=== PATIENT | female | born 1995 ===

== ENCOUNTER 2023-07-16 20:29 | Emergency (ER) | payer OTHER ==
[2023-07-16 21:44] LABS: Absolute Basophils 0.1 K/uL (0-0.5); Absolute Eosinophils 0.6 K/uL (0-0.5); Absolute Lymphocytes (CBC) 2.2 K/uL (0.7-4.9); Absolute Monocytes 0.8 K/uL (0.1-1.3); Absolute Neutrophil 7.8 K/uL (1.8-8.0); Basophils % 0.7 % (0-1.3); Eosinophils % 5.3 % (0-4.4); Hematocrit 42.2 % (36.0-45.0); Hemoglobin 14.3 g/dL (12.0-15.0); Lymphocytes % 18.9 % (15.3-44.8); MCH 28.9 pg (27.0-35.0); MCHC 33.8 g/dL (32.0-36.0); MCV 85.5 fL (80-100); MPV 9.3 fL (7.6-11.3); Neutrophils % 68.1 % (41.7-73.7); Nucleated Red Blood Cells % 0.1 % (0-0); Platelets 171 thou/uL (152-406); RBC Red Blood Cell Count 4.93 M/uL (3.86-4.86); Red Cell Distribution Width 12.6 % (12.1-15.2)
[2023-07-16 21:55] LABS: Specific Gravity < 1.005 (1.005-1.030)
[2023-07-16 21:58] LABS: Specific Gravity < 1.005 (1.005-1.030); Sqamous Epithelial None Seen /HPF (None Seen); Urine Bacteria <20 /HPF (<20); Urine Bilirubin NEGATIVE (Negative); Urine Blood 2+ (Negative); Urine Clarity Turbid (Clear); Urine Color Colorless (Yellow); Urine Culture Reflex Order NOT NEEDED; Urine Glucose NEGATIVE (Negative); Urine Ketones NEGATIVE (Negative); Urine Microscopic Reflex YN ORDER UMIC; Urine Nitrite NEGATIVE (Negative); Urine Protein NEGATIVE (Negative); Urine Urobilinogen Normal (Normal); Urine WBC <5 /HPF (<5)
--- NOTE | 2023-07-16 22:42 | RAD REPORT ---
EXAM DESCRIPTION: US - Transvaginal OB - 07/16/2023 9:47 pm CLINICAL HISTORY: VAGINAL BLEEDING COMPARISON: No comparisons TECHNIQUE: Sonographic grayscale and color flow images of a first-trimester were obtained through a transvaginal approach. FINDINGS: A single intrauterine is identified, within a flattened gestational sac. Hobart-rump length measures 4.1 millimeters, corresponding to gestational age of 6 weeks, 1 days. Normal yolk sac is visualized. No heart rate or cardiac pulsations are identified today. Crescentic fluid collection adjacent to the gestational sac posteriorly measuring 1.1 x 0.7 x 0.6 cm. Corpus luteum with peripheral vascularity seen within the right ovary. Maternal ovaries are unremarkable. No free fluid. IMPRESSION: 1. Single intrauterine , with no cardiac pulsations or heart rate identif ied. Flattened morphology of the gestational sac. Findings raise concern for demise. Please cor relate with serial beta HCG levels. 2. Crescentic fluid collection adjacent to the gestational sac posteriorly measuring up to 1.1 cm, fairchild ggestive of a small subarachnoid hemorrhage.
--- NOTE | 2023-07-16 22:57 | ER ---
Nurse's Notes [facility] Name: Bety Rojo Age: 28 yrs Sex: Female : 1995 Arrival Date: 07/16/2023 Time: 20:29 Bed DX1 Private MD: Diagnosis: Threatened Presentation: 07/15 21:21 Chief complaint: Patient states: vaginal bleeding that started today. denies pain. as6 Coronavirus screen: At this time, the client does not indicate any symptoms associated with coronavirus-19. Ebola Screen: No symptoms or risks identified at this time. Initial Sepsis Screen: Does the patient meet any 2 criteria? No. Patient's initial sepsis screen is negative. Does the patient have a suspected source of infection? No. Patient's initial sepsis screen is negative. Risk Assessment: Do you want to hurt yourself or someone else? Patient reports no desire to harm self or others. Onset of symptoms was July 16, 2023. 21:21 Acuity: AVILA 3 as6 21:21 Method Of Arrival: Ambulatory as6 Triage Assessment: 21:22 General: Appears in no apparent distress. Behavior is cooperative, anxious. Pain: as6 Denies pain. : Reports vaginal bleeding that is bright red, brown, spotty. 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 - Infectious Disease History:: Denies. - Social history:: Smoking status: Patient denies any tobacco usage or history of. Screenin/04 00:48 [facility] ED Fall Risk Assessment (Adult) History of falling in the last 3 months, ss including since admission No falls in past 3 months (0 pts). Abuse screen: Denies threats or abuse. Denies injuries from another. Nutritional screening: No deficits noted. Tuberculosis screening: Never had TB. Assessment: 00:38 General: Appears in no apparent distress. uncomfortable, Behavior is calm, cooperative. ss Neuro: Level of Consciousness is awake, alert, obeys commands, Oriented to person, place, time, situation. Respiratory: Airway is patent Respiratory effort is even, unlabored, Respiratory pattern is regular, symmetrical. : Reports vaginal bleeding that is. Derm: Skin is pink, warm \T\ dry. normal. Vital Signs: 07/15 21:20 BP 132 / 76; Pulse 72; Resp 16 S; Temp 97.5; Pulse Ox 100% on R/A; Weight 68.95 kg (R); as6 Height 5 ft. 7 in. ; Pain 0/10; 21:20 Body Mass Index 23.81 (68.95 kg, 170.18 cm) as6 21:20 Pain Scale: Adult as6 ED Course: 21:00 Patient arrived in ED. ra3 21:18 Rad Spraks PA is PHCP. cp 21:18 Keo Chase MD is Attending Physician. cp 21:21 Arm band placed on. as6 21:22 Triage completed. as6 21:33 Quantitative Hcg Sent. as6 21:33 CBC with Diff Sent. as6 21:33 Basic Metabolic Panel Sent. as6 21:33 Abo/rh Typing Sent. as6 21:33 Inserted saline lock: 20 gauge in right antecubital area, using aseptic technique. as6 Blood collected. 21:45 Urinalysis w/ reflexes Sent. vk 21:45 Urine collected: clean catch specimen, clear. vk 21:49 US Transvaginal Ob In Process Unspecified. EDMS / 00:38 Patient has correct armband on for positive identification. ss 00:48 Gaby Jimenez, RN is Primary Nurse. ss 00:48 No provider procedures requiring assistance completed. IV discontinued, intact, ss bleeding controlled, No redness/swelling at site. Pressure dressing applied. Administered Medications: No medications were administered Medication: 00:38 VIS not applicable for this client. ss Outcome: 07/15 22:57 Discharge ordered by . cp 06/ 00:22 Discharge ordered by . cp 00:48 Discharged to home ambulatory, with family, ss 00:48 Condition: good 00:48 Discharge instructions given to patient, family, Instructed on discharge instructions, follow up and referral plans. Demonstrated understanding of instructions, follow-up care, 00:49 Patient left the ED. ss Signatures: Dispatcher [employer] EDMS Gaby Jimenez RN RN ss Rad Sparks PA PA cp Slawson, Ashby, RN RN as6 Monika Brennan Vivian vk
--- NOTE | 2023-07-16 22:57 | EDPHYS ---
Physician Documentation [facility] Name: Bety Rojo Age: 28 yrs Sex: Female : 1995 Arrival Date: 07/16/2023 Time: 20:29 Bed DX1 Private MD: ED Physician Keo Chase HPI: 07/15 22:00 This 28 yrs old Female presents to ER via Ambulatory with complaints of Vaginal cp Bleeding, + Preg <12wks. 22:00 The patient presents to the emergency department with vaginal bleeding, that is light. cp course: care: at a clinic, Leakage of Fluid: none appreciated, Ultrasound: the patient has not had an ultrasound. Previous pregnancies: the patient has never been . Associated signs and symptoms: Pertinent negatives: abdominal pain, dysuria, fever, vomiting. 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 - Infectious Disease History:: Denies. - Social history:: Smoking status: Patient denies any tobacco usage or history of. ROS: 22:05 : Positive for vaginal bleeding, Negative for urinary symptoms, cp 22:05 Constitutional: Negative for body aches, chills, fever, poor PO intake, cp 22:05 Respiratory: Negative for cough, shortness of breath, wheezing, 22:05 Abdomen/GI: Negative for abdominal pain, nausea and vomiting, 22:05 All other systems are negative, Exam: 22:10 Constitutional: The patient appears in no acute distress, alert, awake, non-toxic, well cp developed, well nourished, 22:10 Head/Face: Normocephalic, atraumatic. cp 22:10 Eyes: Periorbital structures: appear normal, Conjunctiva: normal, no exudate, no injection, Sclera: no appreciated abnormality, Lids and lashes: appear normal, bilaterally, 22:10 ENT: External ear(s): are unremarkable, Nose: is normal, Mouth: Lips: moist, Oral mucosa: pink and intact, moist, Posterior pharynx: Airway: no evidence of obstruction, patent, 22:10 Chest/axilla: Inspection: normal, 22:10 Cardiovascular: Rate: normal, Rhythm: regular, 22:10 Respiratory: the patient does not display signs of respiratory distress, Respirations: normal, no use of accessory muscles, no retractions, labored breathing, is not present, Breath sounds: are clear throughout, no decreased breath sounds, 22:10 Abdomen/GI: Inspection: abdomen appears normal, Palpation: abdomen is soft and non-tender, in all quadrants, 22:10 Back: CVA tenderness, is absent, Vital Signs: 21:20 BP 132 / 76; Pulse 72; Resp 16 S; Temp 97.5; Pulse Ox 100% on R/A; Weight 68.95 kg (R); as6 Height 5 ft. 7 in. ; Pain 0/10; 21:20 Body Mass Index 23.81 (68.95 kg, 170.18 cm) as6 21:20 Pain Scale: Adult as6 MDM: 21:20 Patient medically screened. 07/16 00:21 Data reviewed: vital signs, nurses notes, lab test result(s), radiologic studies, cp ultrasound, and as a result, I will discharge patient. 00:21 Counseling: I had a detailed discussion with the patient and/or guardian regarding the cp historical points, exam findings, and any diagnostic results supporting the discharge/admit diagnosis, lab results, radiology results, the need for outpatient follow up, an OB/Gyne specialist, to return to the emergency department if symptoms worsen or persist or if there are any questions or concerns that arise at home. ED course: VSS. Discussed results of today's testing. Recommendation pelvic rest and repeat beta-hcg in 48 hours. Return to ED worsening symptoms. 07/15 21:23 Order name: Abo/rh Typing; Complete Time: 22:53 07/16 00:45 Interpretation: Reviewed. 07/15 21:23 Order name: Basic Metabolic Panel; Complete Time: 00:21 cp 07/15 23:56 Interpretation: Reviewed. 07/15 21:23 Order name: CBC with Diff; Complete Time: 22:53 07/15 22:53 Interpretation: Normal except: WBC 11.50; RBC 4.93; EOSINOPHIL % 5.3; EOSA 0.6. cp 07/15 21:23 Order name: Test, Urine; Complete Time: 22:53 cp 07/15 22:53 Interpretation: Reviewed. cp 07/15 21:23 Order name: Quantitative Hcg; Complete Time: 00:21 cp 07/16 00:21 Interpretation: Reviewed. cp 07/15 21:23 Order name: Urinalysis w/ reflexes; Complete Time: 22:53 cp 07/15 22:54 Interpretation: Reviewed. cp 07/15 21:23 Order name: US Transvaginal Ob; Complete Time: 22:53 cp 07/15 22:55 Interpretation: Report reviewed. cp 07/15 21:23 Order name: IV Saline Lock; Complete Time: 21:33 cp 07/15 21:23 Order name: Labs collected and sent; Complete Time: 21:33 cp 07/15 21:23 Order name: NPO; Complete Time: 21:33 cp Administered Medications: No medications were administered Disposition Summary: 07/17/23 00:22 Discharge Ordered Notes: Location: Home(07/17/23 00:22) cp Problem: new(07/17/23 00:22) cp Symptoms: are unchanged(07/17/23 00:22) cp Condition: Stable(07/17/23 00:22) cp Diagnosis - Threatened (07/17/23 00:22) cp Followup: cp - With: Private Physician - When: 48 Hours - Reason: Repeat Beta-HCG (48 Hours) Discharge Instructions: - Discharge Summary Sheet cp - Care cp - Threatened Miscarriage cp - Vaginal Bleeding During , First Trimester cp - Subchorionic Hematoma cp - First Trimester of cp - Activity Restriction During cp Forms: - Medication Reconciliation Form cp - Antibiotic Education cp - Prescription Opioid Use cp - Patient Portal Instructions cp - Leadership Thank You Letter cp Addendum: 07/23/2023 10:59 Co-signature as Attending Physician, Keo Chase MD I reviewed the patient's care r t provided by the Advanced Practice Provider and agree with the diagnosis and treatment plan. Signatures: Dispatcher [employer] EDAK Rad Sparks PA PA cp Ryan Aggarwal RN RN as6 Keo Chase MD MD rt Corrections: (The following items were deleted from the chart) 07/15 21:23 21:23 ABO/RH TYPING+BB.LAB.BRZ ordered. EDMS EDMS 21:23 21:23 BASIC METABOLIC PANEL+C.LAB.BRZ ordered. EDMS EDMS 21:23 21:23 CBC+H.LAB.BRZ ordered. EDMS EDMS 21:23 21:23 Test, Urine+UC.LAB.BRZ ordered. EDMS EDMS 21:23 21:23 QUANTITATIVE HCG+C.LAB.BRZ ordered. EDMS EDMS 21:23 21:23 Urinalysis+U.LAB.BRZ ordered. EDMS EDMS 22:58 22:57 Home cp cp 22:58 22:57 new cp cp 22:58 22:57 are unchanged cp cp 22:58 22:57 Stable cp cp 22:58 22:57 Threatened cp cp 07/16 14:15 07/15 22:00 1, Full Term 0, 0, Living 0, unknown cp cp
[2023-07-16 23:29] LABS: Anion Gap 7.8 mEq/L (5.0-15.0); Potassium 3.8 mEq/L (3.5-5.1)
[2023-07-17 01:28] VITALS: BP 132/76; TEMP 97.5; O2SAT 100
== END 2023-07-17 00:49 | disposition home or self-care (01) ==
LOC: ER 20:29
DX: O20.0 Threatened abortion (principal); Z3A.11 11 weeks gestation of pregnancy
CPT/HCPCS: 36415; 76817; 80048; 81001; 81025; 84702; 85025; 86900; 86901; 99283